=== PATIENT | female | born 1965 | race Caucasian/White ===

== ENCOUNTER → 2017-06-02 13:07 | Outpatient (CLI) | payer OTHER ==
[2015-01-04 11:15] VITALS: BMI 20.8
[~2017-06-02 13:07] MED LIST: BACLOFEN20 M1 PO; CALTRATE 600 M600 M1 PO; CATAPRES0.1 MG PO; COMPAZINE10 MG PO; CYMBALTA60 MG PO; HYDROCODON-ACE1 EAC7 PO; IMITREX100 MG PO; NAPROSYN500 MG PO; NORVASC5 MG PO; PRINIVIL20 MG PO; REBIF 44 M44 MCG/0.5 SQ; RELAFEN750 MG PO; TOPAMAX100 MG PO
== END | disposition home or self-care (01) ==
LOC: D.MAMMO 05-10 11:30
DX: Z12.31 Encounter for screening mammogram for malignant neoplasm of breast (principal)

== ENCOUNTER 2018-07-11 08:00 | Outpatient (CLI) | payer OTHER ==
[2015-01-04 11:15] VITALS: BMI 20.8
== END 2018-07-11 09:00 | disposition home or self-care (01) ==
LOC: D.MAMMO 08:00
DX: Z12.31 Encounter for screening mammogram for malignant neoplasm of breast (principal)

== ENCOUNTER 2019-08-11 09:00 | Outpatient (CLI) | payer OTHER ==
[2015-01-04 11:15] VITALS: BMI 20.8
== END 2019-08-11 10:00 | disposition home or self-care (01) ==
LOC: D.MAMMO 09:00
PROVIDERS: ATTEND Student in an Organized Health Care Education/Training Program
DX: Z12.31 Encounter for screening mammogram for malignant neoplasm of breast (principal)